=== PATIENT | male | born 1995 | race Hispanic/Latino ===

== ENCOUNTER 2023-02-27 11:12 | Emergency (ER) | payer SELFPAY ==
[~2023-02-27] VITALS: Ht 188 cm; Wt 94.8 kg
[2023-02-27] MEDS ORDERED: KETOROLAC 30MG VIAL (30MG/ML) ONE (11:38)
[2023-02-27] MEDS ORDERED: KETOROLAC 30MG VIAL (30MG/ML) IVP ONE (12:00)
[2023-02-27] MEDS ORDERED: CYCL10TA16 PO (13:23)
[2023-02-27] MEDS ORDERED: NAPR-1192 PO (13:23)
[2023-02-27 13:24] VITALS: BP 132/78; PULSE 98; RESP 20; O2SAT 98
== END 2023-02-27 13:56 | disposition home or self-care (01) ==
LOC: EDH 11:12
DX: S20.211A Contusion of right front wall of thorax, initial encounter (principal); M25.521 Pain in right elbow; M25.561 Pain in right knee; M25.562 Pain in left knee; V89.2XXA Person injured in unspecified motor-vehicle accident, traffic, initial encounter; Y93.I9 Activity, other involving external motion; Y92.488 Other paved roadways as the place of occurrence of the external cause; Y99.8 Other external cause status
CPT/HCPCS: 99284; 96374; 71045; 73080; 73562; 72170; 71100; 73030; J1885

== ENCOUNTER 2024-07-31 20:44 | Emergency (ER) | payer OTHER ==
[~2024-07-31] VITALS: Ht 188 cm; Wt 99.8 kg
[~2024-07-31 20:44] MED LIST: CYCL10TA16 PO; NAPR-1192 PO
[2024-07-31 20:46] VITALS: TEMP 98
--- NOTE | 2024-07-31 21:24 | ERN ---
General Chief Complaint: Allergic Reaction Stated Complaint: RASH TO BODY Time Seen by MD: 20:49 Time Seen by Midlevel: 20:49 Source: patient History of Present Illness Initial Comments Patient is a 21-year-old male with no significant past medical history presenting to the emergency department for evaluation of a rash to his torso. The rash started earlier today. It was not itchy and it is not painful. Denies any other symptoms. Allergies: Coded Allergies: No Known Drug Allergies (Unverified Allergy, Unknown, 02/27/23) Home Meds Active Scripts Cyclobenzaprine HCl (Flexeril) 10 Mg Tab, 10 MG PO TID for muscle sstiffness, #14 TAB 2 Refills Prov:GUZMAN NIXON Sr., MD 02/27/23 Naproxen (Naproxen) 375 Mg Tablet, 375 MG PO BID for pain for 10 Days, #20 TAB 0 Refills Prov:GUZMAN NIXON Sr., MD 02/27/23 Past Medical History Past Medical History: No Pertinent History Past Surgical History: None Social History Social History: Negative ROS Dictation CONSTITUTIONAL: Negative except for HPI HEAD/FACE: Negative except for HPI EENT: Negative except for HPI RESPIRATORY: Negative except for HPI GASTROINTESTINAL/ABDOMINAL: Negative except for HPI GENITOURINARY: Negative except for HPI MUSCULOSKELETAL: Negative except for HPI INTEGUMENTARY: Negative except for HPI NEUROLOGICAL/PSYCH: Negative except for HPI HEMATOLOGIC/LYMPHATIC: Negative except for HPI All Systems Negative, Except as noted above. 13 point review of systems assessed and all negative except for above. Physical Exam Physical Exam Dictation Vital Signs reviewed General Appearance: Alert, oriented x 3, no acute distress, well developed, nourished. Head and Face: non-traumatic. Eyes: PERRL, pink conjunctivas, eyelid no trauma, anterior chamber with arcus senilis. Ears: Pinnas intact and no signs of trauma or erythema ear canals clear and no discharge TM no erythema Nose: No discharge, no bleeding. Oropharynx: Mouth normal, tongue pink, pharynx clear,no erythema, tonsils no exudates, no abscesses noted, mucous membrane moist Neck: Supple, non-tender, no thyromegaly, no masses, no JVD, no bruits Breast:Deferred Chest:No tenderness, no crepitus, no paradoxical movement, no retractions Lungs:Clear, well-ventilated, symmetric, no rales, no wheezing, no rhonchi, no stridor, good breath sounds bilaterally Heart: Regular rate, regular rhythm, no murmur, no gallops Vascular: no peripheral edema, Abdomen: Soft, positive bowel sounds, nondistended, no guarding, nontender, no rebound, no masses no hepatomegaly, no splenomegaly, no Cheek's sign, no hernias. Rectal: Deferred Genital: Deferred Neurological: Normal speech, motor function intact, sensory function intact Musculoskeletal: Neck nontender, full range of motion, back nontender, full range of motion, Extremities: nontender, full range of motion Skin: There was a single oval-shaped her old patch a proximally 3 cm in diameter with a central clearing to the left upper thigh, there was multiple smaller oval salmon-colored papules with plaques noted along the trunk and proximal extremities distributed in a [place] tree pattern Lymphatic: Deferred MDM MDM: Differential diagnosis: Acute allergic reaction, hives, insect bite There are no social concerns with this patient. Prescription drug management Prescriptions will include: None Medical management and examination interpretation discussions were had by me with other qualified healthcare professionals as indicated for the patient's care. ED Course Vital Signs Date Time Temp Pulse Resp B/P (MAP) Pulse Ox O2 Delivery O2 Flow Rate FiO2 07/31/24 20:46 98.1 83 19 129/78 98 Room Air 0 DX & DISP Disposition: Discharge Departure Impression: Primary Impression: Pityriasis rosea Condition: Stable Additional Instructions: Your rash is consistent with pityriasis rosea. This is a self-limiting rash and should go away on its own over the next several days. If you develop any new or worsening symptoms please report to the ER for further evaluation. Referrals: SELF,REFERRAL (PCP) Time of Disposition: 21:23 I have reviewed the case, and I agree with, Diagnosis and Plan I performed the substantive portion of the visit. I have reviewed and personally made and approve the management plan that is documented in the note by myself or the [facility]. I acknowledge for responsibility for the patient's management plan. JONNATHAN DE LA CRUZ Jul 31, 2024 21:24
[2024-07-31 22:04] VITALS: BP 145/80; PULSE 65; RESP 17; O2SAT 98
== END 2024-07-31 22:08 | disposition home or self-care (01) ==
LOC: EDH 20:44
DX: L42 Pityriasis rosea (principal); Z79.899 Other long term (current) drug therapy
CPT/HCPCS: 99281; 99282